=== PATIENT | female | born 1950 | race Caucasian/White ===

== ENCOUNTER 2021-02-09 06:25 | Inpatient (IN) | payer OTHER ==
[~2021-02-09] VITALS: Ht 167.6 cm; Wt 99.3 kg
[2021-02-09 06:25] VITALS: BP 150/77
--- NOTE | 2021-02-09 06:25 | NUR ---
PT CHIN BLS. TAKEN TO BED 5
--- NOTE | 2021-02-09 06:43 | NUR ---
Dr. Buitrago examining patient.
[2021-02-09] MEDS ORDERED: NACL 0.9% 500 ML IV SCH (06:50)
[2021-02-09] MEDS ORDERED: ALBUTEROL HFA MDI 90 MCG/ACTUATION 8 GM INH ONE (06:50)
[2021-02-09] MEDS ORDERED: methylPREDNISolone SS 125 MG/2 ML VIAL IVP ONE (06:50)
--- NOTE | 2021-02-09 07:11 | NUR ---
PATIENT JUST CAME DUE TO FALL AT HOME COMPLAINING OF BACK PAIN AFTER THE FALL HX ASTHMA HTN THREE STENT DIABETE TAKING INSULINE N 53 UNIT AT MORNING 10 UNIT AT NIGHT EDEMA BILATERAL BOTH LEGS ST 116 ON MONITOR REST OF THE VITALS IN NORMAL LIMITS SPO2 97 RA //DiCaprio RN
[2021-02-09 07:13] LABS: HEMATOCRIT 34.3 % (36-48); HEMOGLOBIN 11.4 g/dL (12.0-16.0); MEAN CORPUSCULAR HEMOGLOBIN 30 pg (27-31); MEAN CORPUSCULAR HGB CONC 33 g/dL (33-37); MEAN CORPUSCULAR VOLUME 90.8 fL (80-94); PLATELET COUNT (AUTO) 288 K/uL (140-450); RED BLOOD CELL COUNT(AUTO) 3.77 MIL/uL (4.20-5.40); RED CELL DISTRIBUTION WIDTH 14.6 % (11.6-13.7); WHITE BLOOD COUNT (AUTO) 24.1 K/uL (4.8-10.8)
--- NOTE | 2021-02-09 07:20 | NUR ---
RECEIVED REPORT FROM SOUMYA CORNELL, ASSUMED CARE AT THIS TIME.
[2021-02-09 07:27] LABS: SODIUM SERUM 138 mmol/L (136-145)
[2021-02-09 07:28] LABS: ANION GAP 16.3 (8-16); CARBON DIOXIDE 25.5 mmol/L (21-32); CHLORIDE 100 mmol/L (98-107); CREATININE 1.1 mg/dL (0.6-1.3); GLUCOSE 273 mg/dL (74-106); POTASSIUM 3.8 mmol/L (3.5-5.1); UREA NITROGEN, BLOOD 17 mg/dL (7-18)
[2021-02-09 07:32] LABS: ALBUMIN 2.5 g/dL (3.4-5.0); ASPARTATE AMINOTRANSFERASE 35 U/L (15-37); LYMPHOCYTES % (MANUAL) 5 % (20-46); MONOCYTES % (MANUAL) 5 % (5-12); TOTAL BILIRUBIN 0.9 mg/dL (0.0-1.0)
[2021-02-09] MEDS ORDERED: PIPERACILLIN/TAZOBACTAM 3.375 GM in DEXTROSE 5% 50 ML IV ONE (07:35)
[2021-02-09] MEDS ORDERED: ASPIRIN 81 MG TAB.CHEW PO ONE (07:35)
--- NOTE | 2021-02-09 07:37 | NUR ---
MOVED TO ER BED 3
--- NOTE | 2021-02-09 07:39 | NUR ---
RECEIVED REPORT FROM KRAIG REEVES. TRANSFER OF CARE AT THIS TIME.
--- NOTE | 2021-02-09 07:44 | NUR ---
COLLECTED MO RODRIGUEZ, WALKED TO LAB.
--- NOTE | 2021-02-09 07:52 | NUR ---
PT SPO2 87% ON RA PER MD ORDER PT PLACED ON 2L NC, SPO2 96%. WILL CONTINUE TO MONITOR.
[2021-02-09] MEDS ORDERED: OSELTAMIVIR PHOSPHATE 75 MG CAP PO ONE (07:55)
[2021-02-09] MEDS ORDERED: PIPERACILLIN/TAZOBACTAM 3.375 GM VIAL IV ONE (08:07)
--- NOTE | 2021-02-09 08:12 | NUR ---
COLLECTED RSV AND INFL A&B, EVAN LAMA AT PT BEDSIDE.
--- NOTE | 2021-02-09 08:24 | NUR ---
ASSISTED PT INTO BEDPAN, REPOSITIONED IN BED CHANGED PT BEDSHEETS PROVIDED WARM BLANKET.
--- NOTE | 2021-02-09 08:52 | NUR ---
PT RESTING IN BED HOB ELEVATED FOR COMFORT, VSS, WILL CONTINUE TO MONITOR.
--- NOTE | 2021-02-09 08:59 | NUR ---
GAVE REPORT TO KRAIG CALI FOR PENDING TRANSFER. ETA 10MINUTES.
--- NOTE | 2021-02-09 09:00 | NUR ---
RECEIVED PATIENT REPORT FROM ER NURSE. AWAITING FOR PATIENT TO ARRIVE.
[2021-02-09] MEDS ORDERED: hePARIN / DEXT 5% PREMIX 250 ML IV SCH (09:10)
[2021-02-09] MEDS ORDERED: MAG SULF 2000 MG/WATER PREMIX 50 ML IV PRN (09:10)
[2021-02-09] MEDS ORDERED: HEPARIN PER PHARMACY MC PRN (09:10)
[2021-02-09] MEDS ORDERED: DOCUSATE SODIUM 100 MG GELCAP PO PRN (09:10)
[2021-02-09] MEDS ORDERED: ONDANSETRON 4 MG/2 ML VIAL IM/IVP PRN (09:10)
[2021-02-09 09:11] LABS: RSV NEGATIVE (NEGATIVE)
[2021-02-09 09:15] VITALS: BP 120/67
[2021-02-09] MEDS ORDERED: DEXTROSE 50% 50 ML SYR IVP PRN (09:15)
--- NOTE | 2021-02-09 09:15 | NUR ---
RECEIVED PATIENT FROM ER NURSE VIA TAL. PT IS AOX4, ABLE TO MAKE NEEDS KNOWN. RESPIRATIONS EVEN AND UNLABORED. ON 2L NC WITH NO RESP DISTRESS. SKIN IS WARM, DRY, AND INTACT. HAS BRUISE ON RIGHT ELBOW, BUT INTACT. IV SITE ON RAC 20G INTACT AND PATENT, SALINE LOCKED. ABD SOFT, FLAT, AND NON-DISTENDED, BOWEL SOUNDS ACTIVE IN ALL QUADRANTS. DENIES PAIN AT THE MOMENT. PLAN OF CARE DISCUSSED. SAFETY PRECAUTIONS IN PLACE. CALL LIGHT WITHIN REACH. WILL CONTINUE TO MONITOR.
[2021-02-09] MEDS ORDERED: METF-1022 PO (09:17)
[2021-02-09] MEDS ORDERED: MONT10TA35 PO (09:17)
[2021-02-09] MEDS ORDERED: LOSA100T1 PO (09:17)
[2021-02-09] MEDS ORDERED: FURO-570 PO (09:17)
--- NOTE | 2021-02-09 09:18 | NUR ---
Patient will be admitted to care of DR. CHAVEZ. Admited to TELE. Will go to room 126A. Belongings list completed. Report to KRAIG PAYNE.
[2021-02-09 09:42] LABS: PROTHROMBIN TIME 10.5 secs (10.8-13.4)
[2021-02-09 09:45] LABS: CHOL/HDL RATIO 3.2 (1-4.5)
[2021-02-09] MEDS: NACL 0.9% 1,000 ML IV SCH (09:45)
[2021-02-09 09:46] LABS: THYROID STIMULATING HORMONE 0.3 uIU/mL (0.34-3.74)
[2021-02-09 10:56] LABS: BILIRUBIN,URINE NEGATIVE (NEGATIVE); COLOR,URINE YELLOW (YELLOW); LEUKOCYTE ESTERASE ,URINE NEGATIVE (NEGATIVE); NITRITE, URINE NEGATIVE (NEGATIVE); UGLUCOSE 3+ (NEGATIVE)
[2021-02-09] MEDS: hePARIN / DEXT 5% PREMIX 250 ML IV SCH ×3 (10:56→19:22)
[2021-02-09 11:13] LABS: BLOOD, URINE 1+ (NEGATIVE)
[2021-02-09 11:14] LABS: YEAST,URINE Few /HPF (None Seen)
[2021-02-09 11:15] LABS: APPEARANCE,URINE SLIGHTLY HAZY (CLEAR); RBC,URINE 0-5 /HPF (0-5); WBC,URINE 0-5 /HPF (0-5)
[2021-02-09 11:21] LABS: BARBITURATE, URINE NEGATIVE ng/ml (NEG <=200); BENZODIAZEPINE, URINE NEGATIVE ng/mL (NEG <=200); CANNABINOID, URINE NEGATIVE ng/mL (NEG <=50); COCAINE, URINE NEGATIVE ng/mL (NEG <=300); OPIATE, URINE NEGATIVE ng/mL (NEG <=2000); PHENCYCLIDINE SCREEN,URINE NEGATIVE ng/mL (NEG <=25)
[2021-02-09] MEDS: ALBUTEROL SULFATE/IPRATROPIU 3 ML SOL IH SCH ×2 (11:37→19:09)
[2021-02-09 12:00] VITALS: BP 149/74
[2021-02-09] MEDS: BLOOD GLUCOSE MONITORING 1 DEV DEV FS SCH ×3 (12:01→22:17)
[2021-02-09] MEDS: INSULIN LISPRO SLIDING SCALE 100 UNITS/ML VIAL SUBQ PRN ×3 (12:01→21:55)
--- NOTE | 2021-02-09 12:30 | NUR ---
US TECH AT PATIENTS BEDSIDE.
[2021-02-09] MEDS: PIPERACILLIN/TAZOBACTAM 3.375 GM in DEXTROSE 5% 50 ML IV SCH ×2 (13:23→22:20)
[2021-02-09] MEDS: methylPREDNISolone SS 125 MG/2 ML VIAL IVP SCH ×2 (13:23→22:16)
--- NOTE | 2021-02-09 13:29 | NUR ---
ALL SCHEDULED MEDS GIVEN. PT IS STABLE. NO DISTRESS NOTED. WILL CONTINUE TO MONITOR.
--- NOTE | 2021-02-09 14:10 | NUR ---
PATIENT TRANSFERRED TO RADIOLOGY TO COMPLETE CT ANGIO SCAN.
--- NOTE | 2021-02-09 14:12 | NUR ---
DC PLANNING: LETICIA SPOKE WITH LETICIA TORRE AT [facility] REGARDING AUTHORIZATION FOR INPATIENT STATUS. NICHO STATES SHE WILL NOTE THAT LETICIA CALLED AND NOTIFIED [facility] THAT PATIENT WAS ADMITTED AN INPATIENT SECONDARY TO SEPSIS AND HYPOXEMIA. LETICIA WILL FOLLOW FOR NEEDS. Addendum: 02/09/21 at 1607 by Nithya Gleason CM DC PLANNING: THE PATIENT ADMITTED THROUGH THE ED WITH C/O BODY ACHES S/P FALL, SOB AND COUGHING. WBC'S ON ADMISSION WERE 24.1, PO2 PER ABG'S 58. LETICIA SPOKE WITH THE PATIENT AT BEDSIDE. SHE LIVES ALONE IN A THIRD FLOOR APARTMENT WITH STAIR ACCESS. THE PATIENT HAS NO H/O HOME HEALTH, AND HAS DME OF A CONCENTRATOR, FWW, NEBULIZER AND GLUCOMETER. SHE IS WAITING TO STEAM CLEANER A 14 DAY SENSOR GLUCOSE MONITORING SYSTEM. SHE SEES HER PCP DR FORD EVERY [address] MON[address] AND WAS SEEING DR NEHA SORTO FOR PULMONOLOGY. DR SORTO'S OFFICE STATED ON HER LAST VISIT THAT HE WOULD NO LONGER BE AVAILABLE, PATIENT IS NOT SURE WHAT HER OPTIONS ARE FOR PULMONOLOGY F/U. THE PATIENT ALSO DOES NOT HAVE A PORTABLE O2 SET UP, SHE STATES THAT DR SORTO ORDERED A COMPACT PORTABLE BUT THE DELIVERING COMPANY STATED THEY DIDN'T HAVE ONE. THE PATIENT IS INDEPENDENT WITH BATHING AND DRESSING AND IS ABLE TO WALK SHORT DISTANCES BEFORE SHE BECOMES SOB. SHE DRIVES TO DO [employer] AND GO TO THE DOCTORS OFFICE. SHE HAS A SISTER WHO LIVES IN [place] AND A SON WHO LIVES IN [place], SHE IS IN REGULAR TOUCH WITH BOTH. THE PATIENT STATES THAT SHE DOESN'T USE HER FWW BECAUSE SHE HAS FALLEN WHILE USING IT AND IS NOW AFRAID TO USE IT. LETICIA ENDORSED THAT P.T. CAN SHOW HER HOW TO USE THE FWW, SHE WOULD ALSO LIKE A SEAT ADDED TO IT. LETICIA ENDORSED THAT THIS IS USUALLY AN OUT OF POCKET EXPENSE, BUT CM WILL ASK HER INSURANCE ABOUT COVERAGE FOR THIS WELL THE PORTABLE O2 AND PULMONOLOGY F/U. LETICIA THEN SPOKE WITH BEA AT [facility] AND ENDORSED THE ABOVE ISSUES FOR F/U WITH THE CASEMANAGER NICHO. LETICIA WILL CONTINUE TO FOLLOW FOR NEEDS. Addendum: 02/10/21 at 1225 by Nithya Gleason CM DC PLANNING: LETICIA SPOKE WITH Jeromy LAWSON, SNF RECOMMENDED PATIENT IS VERY WEAK. LETICIA CONFIRMED WITH THE ATTENDING MD THAT HE'S IN AGREEMENT WITH THIS PLAN, THEN SPOKE WITH LETICIA TORRE AT [facility] TO CONFIRM CONTRACTED SNF'S TO REFER THE PATIENT TO. LETICIA SENT REFERRALS TO [facility], [facility], [facility], [facility], [facility], [facility] AND [facility]. LETICIA WILL FOLLOW UP FOR ACCEPTANCE, PATIENT IS NOT EXPECTED TO DC TODAY. IF PATIENT DC'S THIS WEEKEND, [facility] SHOULD BE CALLED FOR AUTHORIZATION FOR TRANSPORT USING [facility] ([phone]), 29/10 NUMBER FOR [facility] IS [phone]. LETICIA WILL FOLLOW FOR NEEDS. Addendum: 02/10/21 at 1624 by Nithya Gleason CM DC PLANNING: PATIENT IS ACCEPTED TO [facility] FOR CONTINUED P.T. NO ROOM ASSIGNMENT YET, [facility] WILL NEED TO BE CONTACTED WHEN THE PATIENT IS READY TO DC. [facility] IS AWARE AND WILL ISSUE AUTH ONCE [facility] CALLS THEM. CM WILL FOLLOW FOR NEEDS. Addendum: 02/14/21 at 0955 by Nithya Gleason CM DC PLANNING: CM SPOKE WITH NICHO AT [facility] ([phone]), CLINICAL UPDATE GIVEN. ENDORSED THAT THE PATIENT'S WBC'S HAVE TRENDED UP AT 20 AND IS ON O2 4L. THE PATIENT REMAINS ELIZABETH WEAK WHEN WORKING WITH P.T., DC PLAN IS FOR HER TO GO TO [facility] WHEN SHE'S STABLE. CM WILL FOLLOW FOR NEEDS. Addendum: 02/16/21 at 0849 by Nithya Gleason CM DC PLANNING: LETICIA SPOKE WITH NICHO HARO [facility], CLINICAL REVIEW GIVEN. PATIENT ON SOLUMEDROL, BREATHING TREATMENTS AND O2, POSSIBLE DC TODAY TO [facility]. CM WILL FOLLOW FOR NEEDS.
[2021-02-09 16:00] VITALS: BP 125/60
[2021-02-09] MEDS ORDERED: GABAPENTIN 100 MG CAP PO SCH (17:00)
--- NOTE | 2021-02-09 17:00 | NUR ---
ALL SCHEDULED MEDS GIVEN. PT IS STABLE. NO DISTRESS NOTED. WILL CONTINUE TO MONITOR
--- NOTE | 2021-02-09 19:13 | NUR ---
ENDORSED TO WORM FARM LABORER NURSE FOR CONTINUITY OF CARE. PT IS STABLE.
--- NOTE | 2021-02-09 19:30 | NUR ---
RECEIVED REPORT FROM RN DAYSHIFT NURSE AT BEDSIDE FOR CONTINUITY OF CARE, PT IN STABLE CONDITION.
[2021-02-09 20:00] VITALS: BP 128/60
--- NOTE | 2021-02-09 20:00 | NUR ---
PT LYING IN BED SHE IS AOX4 WITH 2 LITERS VIA N/C. SHE HAS A RAC 20G RUNNING HEPARIN GTT AT 1000 UNITS.V/S FOLLOWS: T 97.6 P 94 R 18 B/P 128/60 02 94% WITH 2 LITERS VIA N/C. ALL FALLS PRECAUTIONS IN PLACE.
--- NOTE | 2021-02-09 21:00 | NUR ---
PT FINGERSTICK IS 360, SHE WAS GIVEN 10 UNITS HUMALOG COVERAGE. NEW IV SITE 24G ON RIGHT HAND OBTAINED. ORDERED SOLUMEDROL GIVEN IVP. ZOSYN ALSO HUNG AND RUNNING AT 100MLS/HR VIA 24 GUAGE ON RIGHT HAND. PT ALSO TURNED CHANGED AND REPOSITIONED IN BED. ALL ORDERED PRECAUTIONS IN PLACE.
--- NOTE | 2021-02-09 22:00 | NUR ---
PT HAD ANOTHER EPISODE OF INCONTINENCE, SHE WAS TURNED, CHANGED AND REPOSITIONED IN BED. PT COMPLAINED THAT HER FEET WERE HURTING FORM DIABETIC NERVE PAIN AND THAT AT HOME SHE WAS TAKING GABAPENTIN 600MG 4 X A DAY. PT WAS ALSO NOTED WITH DRY INTERMITTENT COUGH. CONTACTED MD DALEY ORDERED NOTED FOR GABAPENTIN 300MG BID WELL PRN ROBITUSSIN.
--- NOTE | 2021-02-09 23:00 | NUR ---
PT REQUESTED PRN TYRELLIEN, BUT WHEN MEDICATION WAS DRAWN UP AND TAKEN TO PT ROOM, PT WAS ALREADY ASLEEP.
[2021-02-10] VITALS: BP 112/62
--- NOTE | 2021-02-10 | NUR ---
PT IN BED RESTING WITH EYES CLOSED NO S/S OF PAIN OR DISTRESS NOTED V/S FOLLOWS; T 97.9 P 83 R 18 B/P 112/62 02 94% ON 2 LITERS VIA N/C. ALL ORDERED PRECAUTIONS IN PLACE.
[2021-02-10] MEDS: NACL 0.9% 1,000 ML IV SCH ×2 (01:50→21:53)
--- NOTE | 2021-02-10 01:57 | NUR ---
LAB DRAW AT BEDSIDE FOR INR/PTT. PTT RESULT 59.4 WHICH IS THERAPEUTIC LEVEL NO CHANGE TO HEPARIN GTT, NEXT LAB DRAW IS 0730.
[2021-02-10] MEDS: ALBUTEROL SULFATE/IPRATROPIU 3 ML SOL IH PRN (03:23)
[2021-02-10 04:00] VITALS: BP 120/58
[2021-02-10] MEDS: PIPERACILLIN/TAZOBACTAM 3.375 GM in DEXTROSE 5% 50 ML IV SCH ×3 (05:00→20:49)
[2021-02-10] MEDS: methylPREDNISolone SS 125 MG/2 ML VIAL IVP SCH (05:00)
[2021-02-10] MEDS ORDERED: methylPREDNISolone SS 125 MG/2 ML VIAL ONE (06:41)
[2021-02-10] MEDS: guaiFENesin DM 200/20 MG-10 ML 10 ML UDC PO PRN ×2 (06:45→20:45)
--- NOTE | 2021-02-10 06:45 | NUR ---
PT GIVEN ROBITUSSIN FOR COUGH. PT IV SITE ON RIGHT OUT, NEW IV SITE STARTED ON LEFT HAND, IVP SOLUMEDROL GIVEN WELL IVPB ABT ZOSYN HUNG AND RUNNING ORDERED. FINGERSTICK IS 296, WILL ENDORSE TO AM SHIFT TO GIVEN HUMALOG COVERAGE.
--- NOTE | 2021-02-10 07:30 | NUR ---
RECEIVED PATIENT FROM DIRECTOR MARKETING COMMUNICATIONS NURSE FOR CONTINUITY OF CARE. PT IS AOX4, ABLE TO MAKE NEEDS KNOWN. RESPIRATIONS EVEN AND UNLABORED. ON 2L NC WITH NO RESP DISTRESS. SKIN IS WARM, DRY, AND INTACT. HAS MULITPLE BRUISES ON RIGHT ARM, BUT INTACT. IV SITE ON RAC 20G AND LH 24G INTACT AND PATENT, INFUSING FLUIDS WELL. ON HEP DRIP. DENIES PAIN AT THE MOMENT. PLAN OF CARE DISCUSSED. SAFETY PRECAUTIONS IN PLACE. CALL LIGHT WITHIN REACH. WILL CONTINUE TO MONITOR.
[2021-02-10] MEDS: INSULIN LISPRO SLIDING SCALE 100 UNITS/ML VIAL SUBQ PRN ×5 (07:36→20:54)
[2021-02-10] MEDS: BLOOD GLUCOSE MONITORING 1 DEV DEV FS SCH ×4 (07:38→20:58)
[2021-02-10] MEDS: ALBUTEROL SULFATE/IPRATROPIU 3 ML SOL IH SCH ×3 (07:53→19:05)
[2021-02-10 08:00] VITALS: BP 134/60
--- NOTE | 2021-02-10 08:51 | NUR ---
PATIENT HAS BEEN SCREENED AND CATEGORIZED MODERATE NUTRITION RISK. PATIENT WILL BE SEEN WITHIN 3-5 DAYS OF ADMISSION. 02/11/21 02/13/[address]
[2021-02-10 09:01] LABS: BASOPHILS % (AUTO) 0.2 % (0.0-2.0); HEMATOCRIT 33.2 % (36-48); HEMOGLOBIN 10.7 g/dL (12.0-16.0); LYMPHOCYTES % (AUTO) 3.9 % (20.5-51.1); MEAN CORPUSCULAR HEMOGLOBIN 30 pg (27-31); MEAN CORPUSCULAR HGB CONC 32 g/dL (33-37); MEAN CORPUSCULAR VOLUME 91.5 fL (80-94); MONOCYTES # (AUTO) 0.6 K/uL (0.8-1.0); MONOCYTES % (AUTO) 2.5 % (1.7-9.3); NEUTROPHILS # (AUTO) 23.4 K/uL (1.8-7.7); NEUTROPHILS % (AUTO) 93.4 % (42.2-75.2); PLATELET COUNT (AUTO) 325 K/uL (140-450); RED BLOOD CELL COUNT(AUTO) 3.63 MIL/uL (4.20-5.40); RED CELL DISTRIBUTION WIDTH 14.8 % (11.6-13.7)
[2021-02-10 09:11] LABS: ANION GAP 16.7 (8-16); CARBON DIOXIDE 22.1 mmol/L (21-32); CHLORIDE 104 mmol/L (98-107); GLUCOSE 305 mg/dL (74-106); POTASSIUM 3.8 mmol/L (3.5-5.1); SODIUM SERUM 139 mmol/L (136-145); UREA NITROGEN, BLOOD 23 mg/dL (7-18)
[2021-02-10 09:16] LABS: MAGNESIUM 2.2 mg/dL (1.8-2.4); PHOSPHORUS 3.1 mg/dL (2.5-4.9)
[2021-02-10] MEDS: LOSARTAN 50 MG TAB PO SCH (09:40)
[2021-02-10] MEDS: MONTELUKAST SODIUM 10 MG TAB PO SCH (09:41)
[2021-02-10] MEDS: GABAPENTIN 300 MG CAP PO SCH ×2 (09:41→20:45)
[2021-02-10] MEDS: FUROSEMIDE 40 MG TAB PO SCH (09:41)
[2021-02-10] MEDS: KETOROLAC 15 MG/ML VIAL IVP PRN (09:42)
--- NOTE | 2021-02-10 09:45 | NUR ---
ALL SCHEDULED MEDS GIVEN. PT IS STABLE. NO DISTRESS NOTED. WILL CONTINUE TO MONITOR
[2021-02-10] MEDS: PANTOPRAZOLE 40 MG INJ VIAL IVP SCH (09:50)
[2021-02-10 12:00] VITALS: BP 124/78
[2021-02-10 12:07] LABS: T4 (THYROXINE) 7.5 ug/dL (4.5-12.0)
--- NOTE | 2021-02-10 12:46 | NUR ---
BLOOD SUGAR CHECK WAS 467. ADMINISTERED 12 UNITS OF INSULIN SQ PER MD ORDERED.
[2021-02-10] MEDS: methylPREDNISolone SS 40 MG/ML VIAL IVP SCH ×2 (12:57→20:45)
[2021-02-10] MEDS: hePARIN / DEXT 5% PREMIX 250 ML IV SCH (13:31)
--- NOTE | 2021-02-10 14:43 | NUR ---
RECHECKED PATIENT'S BS. BS WAS 436. NOTIFIED MD AND RECEIVED NEW ORDERS. WILL REASSESS BS IN 30 MINS
[2021-02-10] MEDS ORDERED: INSULIN REGULAR, HUMAN 100 UNIT/ML VIAL IVP SCH (15:45)
[2021-02-10 16:00] VITALS: BP 105/65
--- NOTE | 2021-02-10 16:00 | NUR ---
EMPLOYMENT MANAGER AT PATIENT'S BEDSIDE
--- NOTE | 2021-02-10 16:11 | NUR ---
ADMINISTERED 6 UNITS OF HUMULIN R IVP DUE TO PATIENT BS OF 409
--- NOTE | 2021-02-10 18:02 | NUR ---
BLOOD SUGAR CHECK WAS 338. ADMINISTERED 8 UNITS OF INSULIN SQ PER MD ORDERED.
--- NOTE | 2021-02-10 19:35 | NUR ---
ENDORSED TO COMPLEX CARE NURSE NURSE FOR CONTINUITY OF CARE. PT IS STABLE.
--- NOTE | 2021-02-10 19:36 | NUR ---
RECEIVED PT ON BED, AAOX4, ABLE TO MAKE NEEDS KNOWN, ON O2 AT 2L VIA NC, OCCASIONAL COUGH NOTED, WILL GIVE PRN COUGH MEDICATION, IVF INFUSING WELL, ON BEDREST DUE TO GENERALIZED WEAKNESS, SAFETY MEASURES IN PLACE, CALL LIGHT WITHIN REACH.
[2021-02-10 20:00] VITALS: BP 111/51
[2021-02-10] MEDS ORDERED: INSULIN LANTUS 100 UNITS/ML 10 ML VIAL SUBQ SCH (21:00)
--- NOTE | 2021-02-10 21:00 | NUR ---
PT INCONTINENT OF URINE, PERINEAL CARE DONE BY NITA BRADLEY, BLOOD SUGAR CHECKED WITH 360 RESULT, COVERAGE GIVEN, DUE MEDS ADMINISTERED, ALL NEEDS ATTENDED.
[2021-02-11] VITALS: BP_SYST 111; BP_SYST 122; BP_DIAS 51; BP_DIAS 64
--- NOTE | 2021-02-11 | NUR ---
PT SLEEPING, EASILY AROUSABLE, VITAL SIGNS STABLE, NO SIGNS OF PAIN OR SOB NOTED, HEPARIN DRIP INFUSING WELL TO 1000 UNITS/H, CONTINUE TO MONITOR CLOSELY.
[2021-02-11] MEDS: ALBUTEROL SULFATE/IPRATROPIU 3 ML SOL IH PRN (01:52)
[2021-02-11] MEDS: ZOLPIDEM 5 MG TAB PO PRN ×2 (02:06→21:49)
--- NOTE | 2021-02-11 02:06 | NUR ---
PT COMPLAINING OF SOB, HOB ELEVATED, RT DARNELL GAVE BREATHING TREATMENT WITH GOOD RESULT, PT REQUESTED SLEEPING PILL, AMBIEN PO GIVEN ORDERED, MONITORED CLOSELY.
[2021-02-11 04:00] VITALS: BP 142/60
[2021-02-11] MEDS: methylPREDNISolone SS 40 MG/ML VIAL IVP SCH (04:40)
[2021-02-11] MEDS: PIPERACILLIN/TAZOBACTAM 3.375 GM in DEXTROSE 5% 50 ML IV SCH ×3 (04:40→21:45)
[2021-02-11] MEDS: INSULIN LISPRO SLIDING SCALE 100 UNITS/ML VIAL SUBQ PRN ×3 (06:49→22:49)
[2021-02-11] MEDS: BLOOD GLUCOSE MONITORING 1 DEV DEV FS SCH ×4 (06:55→21:00)
--- NOTE | 2021-02-11 07:00 | NUR ---
AM LABS DRAWN, BLOOD SUGAR CHECKED WITH 396 RESULT, COVERAGE GIVEN, HEPARIN DRIP INFUSING WELL, PT REQUESTING FOR HER BREATHING TX, RT MADE AWARE, HOB ELEVATED AT THIS TIME, MONITORED CLOSELY.
[2021-02-11 07:02] LABS: BASOPHILS # (AUTO) 0.2 K/uL (0.00-0.22); BASOPHILS % (AUTO) 1.2 % (0.0-2.0); HEMATOCRIT 32.2 % (36-48); HEMOGLOBIN 10.6 g/dL (12.0-16.0); LYMPHOCYTES # (AUTO) 0.5 K/uL (2.5-16.5); LYMPHOCYTES % (AUTO) 2.9 % (20.5-51.1); MEAN CORPUSCULAR HEMOGLOBIN 30 pg (27-31); MEAN CORPUSCULAR HGB CONC 33 g/dL (33-37); MEAN CORPUSCULAR VOLUME 91.5 fL (80-94); MONOCYTES # (AUTO) 0.4 K/uL (0.8-1.0); MONOCYTES % (AUTO) 2.3 % (1.7-9.3); NEUTROPHILS # (AUTO) 17.5 K/uL (1.8-7.7); NEUTROPHILS % (AUTO) 93.6 % (42.2-75.2); PLATELET COUNT (AUTO) 293 K/uL (140-450); RED BLOOD CELL COUNT(AUTO) 3.52 MIL/uL (4.20-5.40); RED CELL DISTRIBUTION WIDTH 15.2 % (11.6-13.7); WHITE BLOOD COUNT (AUTO) 18.7 K/uL (4.8-10.8)
[2021-02-11] MEDS: ALBUTEROL SULFATE/IPRATROPIU 3 ML SOL IH SCH ×3 (07:21→19:12)
--- NOTE | 2021-02-11 07:35 | NUR ---
PT AWAKE, NO SIGNS OF DISTRESS, BEDSIDE REPORT GIVEN TO KERRY CORNELL FOR CONTINUITY OF CARE.
--- NOTE | 2021-02-11 07:35 | NUR ---
RECEIVED PATIENT FROM CERTIFIED ALCOHOL COUNSELOR NURSE FOR CONTINUITY OF CARE. PT IS AOX4, ABLE TO MAKE NEEDS KNOWN. RESPIRATIONS EVEN AND UNLABORED. ON 2L NC WITH NO RESP DISTRESS. SKIN IS WARM, DRY, AND INTACT. HAS MULTIPLE BRUISES ON RIGHT ARM, BUT INTACT. IV SITE ON RAC 20G AND LH 24G INTACT AND PATENT, INFUSING FLUIDS WELL. ON HEP DRIP. DENIES PAIN AT THE MOMENT. PLAN OF CARE DISCUSSED. SAFETY PRECAUTIONS IN PLACE. CALL LIGHT WITHIN REACH. WILL CONTINUE TO MONITOR.
[2021-02-11 08:00] VITALS: BP 139/54
[2021-02-11 08:07] LABS: MAGNESIUM 2.4 mg/dL (1.8-2.4); PHOSPHORUS 3.1 mg/dL (2.5-4.9)
[2021-02-11 08:15] LABS: ANION GAP 15.6 (8-16); CARBON DIOXIDE 22.4 mmol/L (21-32); CHLORIDE 105 mmol/L (98-107); CREATININE 1.1 mg/dL (0.6-1.3); GLUCOSE 430 mg/dL (74-106); SODIUM SERUM 139 mmol/L (136-145); UREA NITROGEN, BLOOD 35 mg/dL (7-18)
[2021-02-11] MEDS: guaiFENesin DM 200/20 MG-10 ML 10 ML UDC PO PRN ×2 (08:39→21:50)
[2021-02-11] MEDS: GABAPENTIN 300 MG CAP PO SCH ×2 (08:40→21:47)
[2021-02-11] MEDS: MONTELUKAST SODIUM 10 MG TAB PO SCH (08:40)
[2021-02-11] MEDS: FUROSEMIDE 40 MG TAB PO SCH (08:40)
[2021-02-11] MEDS: LOSARTAN 50 MG TAB PO SCH (08:41)
[2021-02-11] MEDS: PANTOPRAZOLE 40 MG INJ VIAL IVP SCH (08:41)
[2021-02-11] MEDS ORDERED: INSULIN LANTUS 100 UNITS/ML 10 ML VIAL SUBQ SCH (09:00)
--- NOTE | 2021-02-11 09:00 | NUR ---
ALL SCHEDULED MEDS GIVEN. PT IS STABLE. NO DISTRESS NOTED. WILL CONTINUE TO MONITOR.
[2021-02-11] MEDS: hePARIN / DEXT 5% PREMIX 250 ML IV SCH (09:45)
[2021-02-11 12:00] VITALS: BP 136/60
--- NOTE | 2021-02-11 12:30 | NUR ---
BS CHECK WAS 414. NOTIFIED MD AND RECEIVED NEW ORDERS TO ADMINISTER 8 UNITS OF HUMULIN R IVP.
--- NOTE | 2021-02-11 13:04 | NUR ---
ENDORSED TO KRAIG GERMAIN FOR CONTINUITY OF CARE. PT IS STABLE
--- NOTE | 2021-02-11 13:05 | NUR ---
RECEIVED REPORT FROM KERRY CORNELL
[2021-02-11] MEDS: INSULIN REGULAR, HUMAN 100 UNIT/ML VIAL IVP SCH (14:23)
--- NOTE | 2021-02-11 15:43 | NUR ---
ROBITUSSIN GIVEN ORDERED
[2021-02-11 16:00] VITALS: BP 129/50
--- NOTE | 2021-02-11 16:30 | NUR ---
BLOOD SUGAR 411. 10u HUMALOG GIVEN. NOTIFIED DR PUTNAM, NO NEW ORDERS
[2021-02-11 20:00] VITALS: BP 130/55
--- NOTE | 2021-02-11 20:12 | NUR ---
Assumed care. A/O x 4. Able o verbalize needs. She did call and requested for her PM medications. She also wants her sleep medication. That shall be provided. She c/o her bottom being red, and that it is hurting her. We shall be applying a diaper by request from pt. We shall clean her up. Applied a barrier cream to the bottom. We have also encouraged her to turn at least every 2 hours in order to promote blood saturation. Also to mitigate the pain issue. We shall give her some pain medication as well. Will continue to monitor.
[2021-02-11] MEDS: guaiFENesin 600 MG TABER PO SCH (21:46)
[2021-02-11] MEDS: METOPROLOL 25 MG TAB PO SCH (21:46)
[2021-02-11] MEDS: NACL 0.9% 1,000 ML IV SCH (21:48)
[2021-02-11] MEDS: KETOROLAC 15 MG/ML VIAL IVP PRN (21:49)
[2021-02-11] MEDS: INSULIN LANTUS 100 UNITS/ML 10 ML VIAL SUBQ SCH (22:50)
[2021-02-12] VITALS: BP 128/54
[2021-02-12] MEDS: ALBUTEROL SULFATE/IPRATROPIU 3 ML SOL IH SCH ×4 (00:28→19:16)
--- NOTE | 2021-02-12 01:53 | NUR ---
IV line is still problematic, but we shall get it to work. Did complain of difficulty breathing. RT was notified. Pt did receive a breath treatment, and she is able to sleep now. Will continue to monitor.
[2021-02-12] MEDS: guaiFENesin DM 200/20 MG-10 ML 10 ML UDC PO PRN ×2 (03:06→11:23)
[2021-02-12 04:00] VITALS: BP 126/58
[2021-02-12] MEDS: ALBUTEROL SULFATE/IPRATROPIU 3 ML SOL IH PRN ×2 (04:14→08:11)
[2021-02-12] MEDS: PIPERACILLIN/TAZOBACTAM 3.375 GM in DEXTROSE 5% 50 ML IV SCH ×3 (05:54→20:59)
[2021-02-12] MEDS: KETOROLAC 15 MG/ML VIAL IVP PRN ×2 (06:11→11:23)
[2021-02-12 06:26] LABS: BASOPHILS # (AUTO) 0.1 K/uL (0.00-0.22); BASOPHILS % (AUTO) 0.5 % (0.0-2.0); HEMATOCRIT 31.2 % (36-48); HEMOGLOBIN 10.4 g/dL (12.0-16.0); LYMPHOCYTES # (AUTO) 1.9 K/uL (2.5-16.5); MEAN CORPUSCULAR HEMOGLOBIN 30 pg (27-31); MEAN CORPUSCULAR HGB CONC 33 g/dL (33-37); MEAN CORPUSCULAR VOLUME 91.6 fL (80-94); MONOCYTES # (AUTO) 0.8 K/uL (0.8-1.0); MONOCYTES % (AUTO) 4.6 % (1.7-9.3); NEUTROPHILS # (AUTO) 13.5 K/uL (1.8-7.7); PLATELET COUNT (AUTO) 303 K/uL (140-450); RED BLOOD CELL COUNT(AUTO) 3.41 MIL/uL (4.20-5.40); RED CELL DISTRIBUTION WIDTH 15.1 % (11.6-13.7); WHITE BLOOD COUNT (AUTO) 16.3 K/uL (4.8-10.8)
[2021-02-12 06:55] LABS: ANION GAP 10.6 (8-16); CARBON DIOXIDE 27.6 mmol/L (21-32); CHLORIDE 105 mmol/L (98-107); CREATININE 1.1 mg/dL (0.6-1.3); GLUCOSE 258 mg/dL (74-106); POTASSIUM 3.2 mmol/L (3.5-5.1); SODIUM SERUM 140 mmol/L (136-145); UREA NITROGEN, BLOOD 30 mg/dL (7-18)
[2021-02-12 07:02] LABS: MAGNESIUM 2.2 mg/dL (1.8-2.4)
[2021-02-12 07:12] LABS: LYMPHOCYTES % (AUTO) 11.9 % (20.5-51.1)
--- NOTE | 2021-02-12 07:15 | NUR ---
Received report from pm nurse Eduardo. Patient resting in bed, respirations even & nonlabored on humidified O2 @ 3L/min via n/c. Intermittent productive cough present with creamy yellow sputum. Left forearm 20G IV intact and asymptomatic with ongoing NS @ 40ml/hr. Call light within reach.
[2021-02-12 08:00] VITALS: BP 140/63
[2021-02-12] MEDS: MONTELUKAST SODIUM 10 MG TAB PO SCH (08:18)
[2021-02-12] MEDS: PANTOPRAZOLE 40 MG INJ VIAL IVP SCH (08:18)
[2021-02-12] MEDS: FUROSEMIDE 40 MG TAB PO SCH (08:19)
[2021-02-12] MEDS: GABAPENTIN 300 MG CAP PO SCH ×2 (08:19→21:01)
[2021-02-12] MEDS: ATORVASTATIN 20 MG TAB PO SCH (08:19)
[2021-02-12] MEDS: ECOTRIN 81 MG TABEC PO SCH (08:19)
[2021-02-12] MEDS: guaiFENesin 600 MG TABER PO SCH ×2 (08:20→21:00)
[2021-02-12] MEDS: LOSARTAN 50 MG TAB PO SCH (08:20)
[2021-02-12] MEDS: METOPROLOL 25 MG TAB PO SCH ×2 (08:20→21:00)
[2021-02-12] MEDS: BLOOD GLUCOSE MONITORING 1 DEV DEV FS SCH ×4 (08:30→20:58)
[2021-02-12] MEDS: INSULIN LANTUS 100 UNITS/ML 10 ML VIAL SUBQ SCH ×2 (08:42→21:00)
[2021-02-12] MEDS: BENZONATATE 100 MG CAPLF PO PRN ×2 (09:30→14:43)
--- NOTE | 2021-02-12 11:30 | NUR ---
Patient sitting up at edge of bed, no signs of distress, respirations even & nonlabored on O2 @ 4L/min via n/c. Call light within reach.
[2021-02-12] MEDS: INSULIN LISPRO SLIDING SCALE 100 UNITS/ML VIAL SUBQ PRN ×2 (11:35→16:56)
--- NOTE | 2021-02-12 11:40 | NUR ---
Patient noted with perineal redness. Dr Jennings notified with order for Gregory. Order noted and carried out.
[2021-02-12 12:00] VITALS: BP 137/58
[2021-02-12] MEDS ORDERED: INSULIN REGULAR, HUMAN 100 UNIT/ML VIAL IVP SCH (12:35)
[2021-02-12] MEDS: INSULIN REGULAR, HUMAN 100 UNIT/ML VIAL IVP SCH (14:30)
[2021-02-12] MEDS: POTASSIUM CHLORIDE 10 MEQ TABER PO PRN (14:43)
[2021-02-12] MEDS: LORazepam 2 MG/ML VIAL IM/IVP PRN (14:50)
--- NOTE | 2021-02-12 14:50 | NUR ---
Pt verbalized feeling general anxiety and she couldn't rest. Lorazepam administered. Reassurance provided.
--- NOTE | 2021-02-12 15:30 | NUR ---
Patient asleep, respirations even & nonlabored on O2 @ 4L/min via n/c. Call light within reach.
[2021-02-12 16:00] VITALS: BP 125/61
[2021-02-12] MEDS: ACETAMINOPHEN 325 MG TAB PO PRN (16:54)
[2021-02-12 20:00] VITALS: BP 136/63
--- NOTE | 2021-02-12 20:20 | NUR ---
Assumed care. Has been cleaned up for incontinence. She wants some medication to calm her down. Will go through her medication. Current blood glucose = 135. Will contact
--- NOTE | 2021-02-12 20:31 | NUR ---
BG = 135 Dr. Jennings contacted in regard to the administration of Lantus 25 units tonight. Per MD hold the dose for tonight. Will administer the PM medications now.
[2021-02-12] MEDS ORDERED: Z-GUARD PASTE TP SCH (21:00)
[2021-02-12] MEDS: NACL 0.9% 1,000 ML IV SCH (22:45)
[2021-02-13] VITALS: BP 145/65
[2021-02-13] MEDS: ALBUTEROL SULFATE/IPRATROPIU 3 ML SOL IH SCH ×4 (00:31→19:07)
[2021-02-13] MEDS: LORazepam 2 MG/ML VIAL IM/IVP PRN (01:41)
[2021-02-13] MEDS: KETOROLAC 15 MG/ML VIAL IVP PRN ×2 (01:42→20:37)
[2021-02-13] MEDS: ZOLPIDEM 5 MG TAB PO PRN ×2 (01:42→20:38)
[2021-02-13] MEDS: BENZONATATE 100 MG CAPLF PO PRN (01:46)
[2021-02-13 04:00] VITALS: BP 150/70
[2021-02-13] MEDS: PIPERACILLIN/TAZOBACTAM 3.375 GM in DEXTROSE 5% 50 ML IV SCH ×3 (05:09→20:39)
[2021-02-13 06:11] LABS: ANION GAP 6.7 (8-16); CHLORIDE 106 mmol/L (98-107); CREATININE 0.9 mg/dL (0.6-1.3); GLUCOSE 231 mg/dL (74-106); POTASSIUM 3.7 mmol/L (3.5-5.1); SODIUM SERUM 139 mmol/L (136-145); UREA NITROGEN, BLOOD 22 mg/dL (7-18)
[2021-02-13 06:12] LABS: MAGNESIUM 2.1 mg/dL (1.8-2.4); PHOSPHORUS 3.1 mg/dL (2.5-4.9)
[2021-02-13 06:17] LABS: BASOPHILS # (AUTO) 0.1 K/uL (0.00-0.22); BASOPHILS % (AUTO) 0.3 % (0.0-2.0); EOSINOPHILS # (AUTO) 0.2 K/uL (0-0.4); EOSINOPHILS % (AUTO) 0.9 % (0.0-4.0); HEMATOCRIT 31.8 % (36-48); HEMOGLOBIN 10.5 g/dL (12.0-16.0); LYMPHOCYTES # (AUTO) 2.1 K/uL (2.5-16.5); LYMPHOCYTES % (AUTO) 11.3 % (20.5-51.1); MEAN CORPUSCULAR HEMOGLOBIN 30 pg (27-31); MEAN CORPUSCULAR HGB CONC 33 g/dL (33-37); MEAN CORPUSCULAR VOLUME 91.7 fL (80-94); MONOCYTES # (AUTO) 0.7 K/uL (0.8-1.0); MONOCYTES % (AUTO) 4.1 % (1.7-9.3); NEUTROPHILS # (AUTO) 15.2 K/uL (1.8-7.7); NEUTROPHILS % (AUTO) 83.4 % (42.2-75.2); PLATELET COUNT (AUTO) 273 K/uL (140-450); RED BLOOD CELL COUNT(AUTO) 3.46 MIL/uL (4.20-5.40); RED CELL DISTRIBUTION WIDTH 15.2 % (11.6-13.7); WHITE BLOOD COUNT (AUTO) 18.2 K/uL (4.8-10.8)
[2021-02-13] MEDS: BLOOD GLUCOSE MONITORING 1 DEV DEV FS SCH ×4 (06:39→20:49)
[2021-02-13] MEDS: INSULIN LISPRO SLIDING SCALE 100 UNITS/ML VIAL SUBQ PRN ×4 (06:50→21:49)
--- NOTE | 2021-02-13 07:55 | NUR ---
RECEIVED PATIENT REPORT FROM SHAKER WASHER NURSE FOR CONTINUITY OF CARE. PT IS AOX1, NO RESPIRATORY DISTRESS. SKIN IS INTACT. IV IN PLACE PATENT ASYMPTOMATIC , BREATHING EVEN UNLABORED, . DENIES PAIN AT THE MOMENT. PLAN OF CARE DISCUSSED. PATIENT IS CONFUSED, TRYING TO GET OUT OF BED, EXPLAIN TO THE PATIENT THE RISK OF FALL AND EDUCATED ODIN CALL IF SHE NEED ANYTHING, CALLS LIGHT WITHIN REACH, ALL NEED MEET AT THIS MOMENT ALL SAFETY PRECAUTIONS IN PLACE CALL LIGHT WITHIN REACH.
[2021-02-13 08:00] VITALS: BP 125/68
[2021-02-13] MEDS: ATORVASTATIN 20 MG TAB PO SCH (08:10)
[2021-02-13] MEDS: ECOTRIN 81 MG TABEC PO SCH (08:11)
[2021-02-13] MEDS: METOPROLOL 25 MG TAB PO SCH ×2 (08:11→20:34)
[2021-02-13] MEDS: guaiFENesin 600 MG TABER PO SCH ×2 (08:11→20:35)
[2021-02-13] MEDS: FUROSEMIDE 40 MG TAB PO SCH (08:11)
[2021-02-13] MEDS: LOSARTAN 50 MG TAB PO SCH (08:12)
[2021-02-13] MEDS: GABAPENTIN 300 MG CAP PO SCH ×2 (08:12→20:35)
[2021-02-13] MEDS: PANTOPRAZOLE 40 MG INJ VIAL IVP SCH (08:12)
[2021-02-13] MEDS: MONTELUKAST SODIUM 10 MG TAB PO SCH (08:12)
[2021-02-13] MEDS: INSULIN LANTUS 100 UNITS/ML 10 ML VIAL SUBQ SCH ×2 (08:25→21:00)
--- NOTE | 2021-02-13 09:42 | NUR ---
PATIENT ON BED, COMPLAINS OF BEING TIRED, NEXT TO BED TALKING TO THE PATIENT, RESIDENT OF DR BERNAL ASKED TO GIVE ANOTHER BREATHING TREATMENT, CALLED RT AND MADE AWARE, NO SOD NOTED, MORNING MEDICATION ADMINISTRATED TOLERATED WELL, PATIENT ATE BREAKFAST, ABLE TO FEED HER SELF WITH MINIMAL ASSISTANCE ALL SAFETY MEASURES ON PLACE CALLS LIGHT WITHIN REACH
--- NOTE | 2021-02-13 10:00 | NUR ---
CALLED TO PTS ROOM FOR BREATHING TX. AFTER BREATHING TX AND WHEEZING SUBSIDED, PT STATED SHE WAS STILL SOB AND WAS LABORED AND PURSED LIP BREATHING. PT IN OBVIOUS RESPIRATORY DISTRESS, PLACED ON HFNC 35L 40%, SPO2 94-96%. PT STATED SHE FELT A LITTLE BETTER. RN NOTIFIED.
[2021-02-13] MEDS: ALBUTEROL SULFATE/IPRATROPIU 3 ML SOL IH PRN (10:15)
--- NOTE | 2021-02-13 11:45 | NUR ---
02/13/21 RD INITIAL ASSESSMENT COMPLETED PLEASE REFER TO NUTRITION ASSESSMENT UNDER CARE ACTIVITY FOR ESTIMATED NUTRITIONAL NEEDS. 1.CONTINUE [facility] DIET TOLERATED 2.RECOMMEND GLUCERNA BID, CONSUME IN BETWEEN MEALS -THIS WILL PROVIDE 440 KCALS AND 20GM PROTEIN. 3.RD TO FOLLOW-UP 3-5 DAYS, MODERATE RISK REVIEWED BY MAGO KING RD
--- NOTE | 2021-02-13 11:46 | NUR ---
PATIENT IN BED GOT CLEANED AND CHANGED, NO SOD NOTED, ALL SAFETY MEASURES ON PLACE CALLS LIGHT WITHIN REACH
[2021-02-13 12:00] VITALS: BP 132/78
--- NOTE | 2021-02-13 13:31 | NUR ---
PATIENT IN BED GOT CLEANED AND CHANGED, NO SOD NOTED, PT IN NASAL CANULA `4 L, BUSINESS CONTROLLER PUT THE PATIENT ON HIGH FLOW, PATEIENT KEEP REMOVING IT, PATIENT WAS PLACED BACK ON NASAL CANULA SAT 94% ALL SAFETY MEASURES ON PLACE CALLS LIGHT WITHIN REACH
--- NOTE | 2021-02-13 13:33 | NUR ---
PT AGREED TO GO BACK ON HFNC 25L 35%/, WILL SEE HOW PT TOLERATES. NASAL CANNULA AT BEDSIDE IF PT REMOVES HFNC AGAIN.
[2021-02-13] MEDS: INSULIN REGULAR, HUMAN 100 UNIT/ML VIAL IVP SCH (14:20)
--- NOTE | 2021-02-13 15:40 | NUR ---
HUMULIN INSULIN R WAS NOT ADMINISTRATED, THE ORDER IS WRONG AND CLARIFIED WITH DR BERNAL HE ASKED TO DC THE ORDER AND DO RISS WITH ACUCHECK Addendum: 02/13/21 at 1543 by Rosalio Corado RN RN PT IN BED CONFUSED NO SOD NOTD, TRIED TO GET OUT OF THE BED MULTIPKE TIME, EXPLAINED TO THE PATIENT THE RISK OF FALL AND ENCOURAGE HER TO CALL THE LIGHT CALL FOR ANY NEED OR HELP,K ALL SAFETY MEASURES ON PLACE CALLS LIGHT WITHIN REACH
[2021-02-13 16:00] VITALS: BP 157/75
--- NOTE | 2021-02-13 18:20 | NUR ---
PATIENT IN BED NO COMPLAINS, NO SOD NOTED, ALL SAFETY MEASURES ON PLACE CALLS LIGHT WITHIN REACH
--- NOTE | 2021-02-13 19:22 | NUR ---
1906 PATIENT SEEMS SOB. HHNTX GIVEN. PATIENT IS ON 5LNC. TRIED TO PERSUADE PATIENT TO GO ON HIGH FLOW.. PT REFUSES.. PATIENT HAS DECREASED BS.
--- NOTE | 2021-02-13 19:49 | NUR ---
FULL REPORT GIVEN TO AIR TRAFFIC CONTROL MANAGER NURSE
--- NOTE | 2021-02-13 19:50 | NUR ---
RECEIVED REPORT FROM BETH RN FOR CONTINUITY OF CARE. PT SITTING UP AAOX3. NO APPARENT S/S OF ACUTE DISTRESS. BREATHING EVEN AND UNLABORED ON 5L HI-FLOW NC WITH O2 SAT OF 94. NO C/O CP, SOB OR PAIN. L FA 22G INTACT/PATENT WITH NS@40ML/HR. POC AND WHITE COMMUNICATION BOARD UPDATED. BED IN LOW/LOCKED POSITION. CALL LIGHT WITHIN REACH. PT ENCOURAGED TO CALL FOR ANY NEEDS/ASSISTANCE. WILL CONTINUE TO MONITOR.
[2021-02-13 20:00] VITALS: BP 143/56
--- NOTE | 2021-02-13 20:43 | NUR ---
ACCUCHECK COMPLETED, BS 150 NO INSULIN DUE PER SLIDING SCALE. SCHEDULED LANTUS 25 UNITS DUE. WILL NOTIFY MD FOR FURTHER ORDERS.
[2021-02-13] MEDS: NACL 0.9% 1,000 ML IV SCH (21:18)
--- NOTE | 2021-02-13 21:39 | NUR ---
SPOKE TO DR. DAVIS. ORDERS TO HOLD SCHEDULED LANTUS 25 UNITS. RECEIVED ORDER TO GIVE 6 UNITS PER INSULIN SLIDING SCALE NOW.
[2021-02-14] VITALS: BP 121/53
[2021-02-14] MEDS: ALBUTEROL SULFATE/IPRATROPIU 3 ML SOL IH SCH ×4 (00:51→19:15)
[2021-02-14 04:00] VITALS: BP 139/59
[2021-02-14 05:41] LABS: BASOPHILS # (AUTO) 0.1 K/uL (0.00-0.22); BASOPHILS % (AUTO) 0.3 % (0.0-2.0); EOSINOPHILS # (AUTO) 0.2 K/uL (0-0.4); HEMATOCRIT 32.8 % (36-48); HEMOGLOBIN 10.7 g/dL (12.0-16.0); LYMPHOCYTES # (AUTO) 1.7 K/uL (2.5-16.5); LYMPHOCYTES % (AUTO) 8.5 % (20.5-51.1); MEAN CORPUSCULAR HEMOGLOBIN 30 pg (27-31); MEAN CORPUSCULAR HGB CONC 33 g/dL (33-37); MEAN CORPUSCULAR VOLUME 92.1 fL (80-94); MONOCYTES # (AUTO) 0.7 K/uL (0.8-1.0); MONOCYTES % (AUTO) 3.5 % (1.7-9.3); NEUTROPHILS # (AUTO) 17.4 K/uL (1.8-7.7); NEUTROPHILS % (AUTO) 86.7 % (42.2-75.2); PLATELET COUNT (AUTO) 265 K/uL (140-450); RED BLOOD CELL COUNT(AUTO) 3.56 MIL/uL (4.20-5.40); RED CELL DISTRIBUTION WIDTH 15.2 % (11.6-13.7)
[2021-02-14 05:42] LABS: MAGNESIUM 2.1 mg/dL (1.8-2.4); PHOSPHORUS 3.4 mg/dL (2.5-4.9)
[2021-02-14 05:59] LABS: ANION GAP 7.1 (8-16); CARBON DIOXIDE 31.3 mmol/L (21-32); CHLORIDE 105 mmol/L (98-107); CREATININE 1.1 mg/dL (0.6-1.3); GLUCOSE 139 mg/dL (74-106); POTASSIUM 3.4 mmol/L (3.5-5.1); SODIUM SERUM 140 mmol/L (136-145); UREA NITROGEN, BLOOD 21 mg/dL (7-18)
[2021-02-14] MEDS: BLOOD GLUCOSE MONITORING 1 DEV DEV FS SCH ×4 (06:31→20:50)
[2021-02-14] MEDS: POTASSIUM CHLORIDE 10 MEQ TABER PO PRN (06:40)
[2021-02-14] MEDS: guaiFENesin DM 200/20 MG-10 ML 10 ML UDC PO PRN ×2 (06:43→21:46)
--- NOTE | 2021-02-14 07:24 | NUR ---
REPORT GIVEN TO LEONARDA CORNELL FOR CONTINUITY OF CARE. NO APPARENT S/S OF ACUTE DISTRESS. BED IN LOW/LOCKED POSITION. CALL LIGHT WITHIN REACH. ALL NEEDS MET AT THIS TIME. Addendum: 02/14/21 at 0712 by Agency NurseKRAIG RN REPORT GIVEN TO TRISTEN GAMBOA RN FOR CONTINUITY OF CARE.
[2021-02-14 08:00] VITALS: BP 128/67
[2021-02-14] MEDS: ACETAMINOPHEN 325 MG TAB PO PRN (08:30)
[2021-02-14] MEDS: ECOTRIN 81 MG TABEC PO SCH (09:55)
[2021-02-14] MEDS: GABAPENTIN 300 MG CAP PO SCH ×2 (09:55→20:52)
[2021-02-14] MEDS: ATORVASTATIN 20 MG TAB PO SCH (09:55)
[2021-02-14] MEDS: PANTOPRAZOLE 40 MG INJ VIAL IVP SCH (10:01)
[2021-02-14] MEDS: guaiFENesin 600 MG TABER PO SCH ×2 (10:02→20:51)
[2021-02-14] MEDS: MONTELUKAST SODIUM 10 MG TAB PO SCH (10:02)
[2021-02-14] MEDS: FUROSEMIDE 40 MG TAB PO SCH (10:03)
[2021-02-14] MEDS: LOSARTAN 50 MG TAB PO SCH (10:03)
[2021-02-14] MEDS: methylPREDNISolone SS 40 MG/ML VIAL IVP SCH (10:04)
[2021-02-14] MEDS: BENZONATATE 100 MG CAPLF PO PRN (10:11)
[2021-02-14] MEDS: METOPROLOL 25 MG TAB PO SCH ×2 (10:11→20:51)
[2021-02-14] MEDS: INSULIN LANTUS 100 UNITS/ML 10 ML VIAL SUBQ SCH ×2 (10:17→21:05)
[2021-02-14 12:00] VITALS: BP 124/62
[2021-02-14] MEDS: INSULIN LISPRO SLIDING SCALE 100 UNITS/ML VIAL SUBQ PRN ×3 (12:31→21:04)
[2021-02-14 16:00] VITALS: BP 123/57
--- NOTE | 2021-02-14 19:15 | NUR ---
RECEIVED REPORT FROM COOPER CORNELL FOR CONTINUITY OF CARE. PT SITTING UP AAOX3. NO APPARENT S/S OF ACUTE DISTRESS. BREATHING EVEN AND UNLABORED ON 5L NC WITH O2 SAT OF 97%. NO C/O CP, SOB OR PAIN. L FA 22G INTACT/PATENT. POC AND WHITE COMMUNICATION BOARD UPDATED. BED IN LOW/LOCKED POSITION. CALL LIGHT WITHIN REACH. PT ENCOURAGED TO CALL FOR ANY NEEDS/ASSISTANCE. WILL CONTINUE TO MONITOR.
[2021-02-14 20:00] VITALS: BP 109/46
[2021-02-14] MEDS: ZOLPIDEM 5 MG TAB PO PRN (20:52)
[2021-02-14] MEDS: NACL 0.9% 1,000 ML IV SCH (21:18)
[2021-02-15] VITALS: BP 118/55
[2021-02-15] MEDS: ALBUTEROL SULFATE/IPRATROPIU 3 ML SOL IH SCH ×4 (00:29→19:16)
[2021-02-15] MEDS: BENZONATATE 100 MG CAPLF PO PRN (01:04)
[2021-02-15] MEDS: ACETAMINOPHEN 325 MG TAB PO PRN (01:09)
[2021-02-15 04:00] VITALS: BP 133/62
[2021-02-15] MEDS: guaiFENesin DM 200/20 MG-10 ML 10 ML UDC PO PRN (05:16)
[2021-02-15] MEDS: ALBUTEROL SULFATE/IPRATROPIU 3 ML SOL IH PRN ×2 (05:28→16:10)
--- NOTE | 2021-02-15 06:26 | NUR ---
0626: POC GLUCOSE 263. INSULIN GIVEN PER EMAR.
[2021-02-15] MEDS: BLOOD GLUCOSE MONITORING 1 DEV DEV FS SCH ×4 (06:31→20:22)
[2021-02-15] MEDS: INSULIN LISPRO SLIDING SCALE 100 UNITS/ML VIAL SUBQ PRN ×4 (06:35→20:25)
--- NOTE | 2021-02-15 06:58 | NUR ---
REPORT GIVEN TO SANDRA CORNELL FOR CONTINUITY OF CARE. NO APPARENT S/S OF ACUTE DISTRESS. BED IN LOW/LOCKED POSITION. CALL LIGHT WITHIN REACH. ALL NEEDS MET AT THIS TIME.
--- NOTE | 2021-02-15 07:26 | NUR ---
REPORT RECEIVED FORM PICTURE COPYIST NURSE AT BEDSIDE. PT RESTING I, BREATHING IS SYMMETRICAL AND UNLABORED . PT IS ABLE TO MAKE NEEDS KNOWN CALL LIGHT WITHIN REACH. ALL SAFETY MEASURES ARE IN PLACE.
[2021-02-15 08:00] VITALS: BP 142/64
[2021-02-15] MEDS: methylPREDNISolone SS 40 MG/ML VIAL IVP SCH (08:50)
[2021-02-15] MEDS: PANTOPRAZOLE 40 MG INJ VIAL IVP SCH (08:52)
[2021-02-15] MEDS: LOSARTAN 50 MG TAB PO SCH (08:53)
[2021-02-15] MEDS: ATORVASTATIN 20 MG TAB PO SCH (08:53)
[2021-02-15] MEDS: guaiFENesin 600 MG TABER PO SCH ×2 (08:56→20:21)
[2021-02-15] MEDS: GABAPENTIN 300 MG CAP PO SCH ×2 (08:56→20:20)
[2021-02-15] MEDS: MONTELUKAST SODIUM 10 MG TAB PO SCH (08:56)
[2021-02-15] MEDS: FUROSEMIDE 40 MG TAB PO SCH (08:56)
[2021-02-15] MEDS: METOPROLOL 25 MG TAB PO SCH ×2 (08:57→20:21)
[2021-02-15] MEDS: INSULIN LANTUS 100 UNITS/ML 10 ML VIAL SUBQ SCH ×2 (08:57→20:26)
[2021-02-15] MEDS: ECOTRIN 81 MG TABEC PO SCH (08:57)
--- NOTE | 2021-02-15 09:17 | NUR ---
PATIENT GIVEN PRESCRIBED MEDIATIONS GIVEN PER MD ORDER. PT EDUCATED AND VERBALIZED UNDERSTANDING BG 136. PT ATE 70% OF BREAKFAST PATIENT EDUCATED ON HYPOGLYCEMIC S/SX , AND SNACK PROVIDED
--- NOTE | 2021-02-15 09:33 | NUR ---
AT BEDSIDE , PT REQUEST WATER PT GIVEN WATER WITH ICE PER REQUEST , ALL SAFETY MEASURES IN PLACE. PT REQUEST BAO MANRIQUE AWARE.
--- NOTE | 2021-02-15 10:22 | NUR ---
PT COMPLAINS OF LEFT LEG NUMBNESS , PT IS ABLE TO MOVE LEG, HAS SENSATION AND IS ABLE TO VERBALIZE WHERE I TOUCH . NO LOSS OF COLOR Addendum: 02/15/21 at 1024 by Yojana Reed RN RN PT EDUCATED TO EXERCISE BOTH LEGS, PT GUIDED THROUGH EXERCISES , PT REPOSITIONED AND OFFERED PILLOW TO PLACE UNDER LEG . ALL SAFETY MEASURES IN PLACE.
--- NOTE | 2021-02-15 11:10 | NUR ---
PT COMPLAINS OF LEFT LEG NUMBNESS AGAIN POT ASSESSED. PT ABLE TO MOVE LEG, ABLE TO FEEL SENSATION , PT REPOSITIONED ON OPPOSITE SIDE . ALL SAFETY MEASURES ARE IN PLACE.
--- NOTE | 2021-02-15 11:22 | NUR ---
PT COMPLAINS OF PAINFUL IV SITE. IV REMOVED CANULA INTACT. NEW LINE STARTED 22G RIGHT AC. PT TOLERATED WELL, ALL SAFETY MEASURES ARE IN PLACE.
--- NOTE | 2021-02-15 11:30 | NUR ---
BG 326. ALL SAFETY MEASURES IN PLACE.
--- NOTE | 2021-02-15 11:35 | NUR ---
PRN INSULIN GIVEN PER MD ORDER, DUAL RN VERIFICATION COMPLETED . PT EDUCATED AND VERBALIZED UNSERSTANDING . PT STATES SHE PREFERS HER TRULICITY ALL SAFETY MEASURES IN PLACE.
--- NOTE | 2021-02-15 11:58 | NUR ---
PT COMPLAINS OF CHAPPED LIPS. LIP MOISTURIZER PROVIDED
[2021-02-15 12:00] VITALS: BP 125/53
[2021-02-15] MEDS: LORazepam 2 MG/ML VIAL IM/IVP PRN ×2 (13:05→20:10)
--- NOTE | 2021-02-15 13:10 | NUR ---
PT COMPLAINS OF FEELING ANXIOUS PRN MEDICATION GIVEN PER MD ORDER. PT EDUCATED AND VERBALIZED UNDERSTANDING
--- NOTE | 2021-02-15 13:32 | NUR ---
PT CHANGED AND REPOSITIONED . ALL SAFETY MEASURES ARE IN PLACE.
--- NOTE | 2021-02-15 15:25 | NUR ---
PT CHANGED REPOSITIONED ALL SAFETY MEASURE ARE IN PLACE
--- NOTE | 2021-02-15 17:29 | NUR ---
PT REQUEST ATIVAN PT EDUCATED . PT IS CALM AND RELAXED AT THIS TIME. PT GUIDED THROUGH BREATHING EXERCISES
--- NOTE | 2021-02-15 17:56 | NUR ---
CALLED PICC LINE NURSE TO FOLLOW UP FOR AN eta, NO ANSWER LEFT MESSAGE.
[2021-02-15 18:02] VITALS: BP 124/70
--- NOTE | 2021-02-15 18:29 | NUR ---
PATIENT CALLED . PT REPOSITIONED AND CHANGED ALL SAFETY MEASURE SIN PLACE. Addendum: 02/15/21 at 1840 by Yojana Reed RN RN WRONG PT
--- NOTE | 2021-02-15 19:30 | NUR ---
Received patient from am shift nurse. Patient is A&OX3 able to make needs known, no s/s of distress noted, denies any chest pain or SOB. Patient had RT at bed side. Chest rise is even and unlabored with diminished lung sounds bilaterally on 5L NC. Normal heart sounds present S1& S2 with Tachy cardic rhythm. Bowel sounds are active x4 and no ABD tenderness on palpation. Patient is stable will continue to monitor throughout the shift.
--- NOTE | 2021-02-15 19:30 | NUR ---
PT WAS SEEN AND ASSESSED. PT ON 3L NASAL CANNULA. SPO2 94%. PT IS IN NO RESPIRATORY DISTRESS AT THIS TIME. HHN TX GIVEN ORDERED AND PT TOLERATED WELL. WILL CONTINUE TO MONITOR PT.
--- NOTE | 2021-02-15 19:32 | NUR ---
PT ENDORSED TO BEHAVIORAL HEALTH THERAPIST NURSE. PT INSTABLE CONDITION
[2021-02-15] MEDS: NACL 0.9% 1,000 ML IV SCH (20:28)
[2021-02-15] MEDS: ZOLPIDEM 5 MG TAB PO PRN (22:48)
[2021-02-16] VITALS: BP 103/65
--- NOTE | 2021-02-16 | NUR ---
Patient is sleeping no s/s of distress is noted. Call light is within reach, bed is in the lowest position with bed rails up. Will continue to monitor throughout the shift.
[2021-02-16] MEDS: ALBUTEROL SULFATE/IPRATROPIU 3 ML SOL IH SCH ×3 (01:34→13:38)
[2021-02-16] MEDS: ACETAMINOPHEN 325 MG TAB PO PRN (02:35)
[2021-02-16] MEDS: LORazepam 2 MG/ML VIAL IM/IVP PRN (02:35)
--- NOTE | 2021-02-16 02:40 | NUR ---
Patient is anxious and reports headache. Stating she is unable to rest. Ativan administered as ordered and acetaminophen was given for headache. Will continue to monitor.
[2021-02-16] MEDS: INSULIN LISPRO SLIDING SCALE 100 UNITS/ML VIAL SUBQ PRN ×2 (06:41→11:30)
[2021-02-16] MEDS: BLOOD GLUCOSE MONITORING 1 DEV DEV FS SCH ×2 (06:45→11:27)
[2021-02-16 06:49] VITALS: BP 111/56
--- NOTE | 2021-02-16 07:05 | NUR ---
RECEIVED PATIENT FROM [employer] NURSE FOR CONTINUITY OF CARE. PATIENT IS AWAKE, ALERT AND ORIENTED X3. ON TELE MONITOR. RESTING IN BED, NO SIGN OF RESPIRATORY DISTRESS, ON 5L OXYGEN VIA NC. SKIN WARM, DRY, NON DIAPHORETIC. IV ON RIGHT AC 22G, INTACT AND PATENT, SALINE LOCK. PATIENT DENIES ANY PAIN, ABLE TO MAKE NEED KNOWN. PLAN OF CARE DISCUSSED, PATIENT VERBALIZED UNDERSTANDING. PRECAUTION IN PLACE. CALL LIGHT WITHIN REACH. WILL CONTINUE TO MONITOR.
[2021-02-16 08:00] VITALS: BP 145/74
[2021-02-16] MEDS: PANTOPRAZOLE 40 MG INJ VIAL IVP SCH (09:25)
[2021-02-16] MEDS: methylPREDNISolone SS 40 MG/ML VIAL IVP SCH (09:25)
[2021-02-16] MEDS: ATORVASTATIN 20 MG TAB PO SCH (09:26)
[2021-02-16] MEDS: MONTELUKAST SODIUM 10 MG TAB PO SCH (09:32)
[2021-02-16] MEDS: FUROSEMIDE 40 MG TAB PO SCH (09:33)
[2021-02-16] MEDS: guaiFENesin 600 MG TABER PO SCH (09:33)
[2021-02-16] MEDS: METOPROLOL 25 MG TAB PO SCH (09:33)
[2021-02-16] MEDS: GABAPENTIN 300 MG CAP PO SCH (09:34)
[2021-02-16] MEDS: LOSARTAN 50 MG TAB PO SCH (09:34)
[2021-02-16] MEDS: ECOTRIN 81 MG TABEC PO SCH (09:34)
--- NOTE | 2021-02-16 09:34 | NUR ---
SCHEDULE MEDICATIONS GIVEN WITH EDUCATION, PATIENT VERBALIZED UNDERSTANDING. PATIENT TOLERATED WELL. NO SIGN OF DISTRESS NOTED. PRECAUTION IN PLACE. CALL LIGHT WITHIN REACH. WILL CONTINUE TO MONITOR.
[2021-02-16] MEDS: INSULIN LANTUS 100 UNITS/ML 10 ML VIAL SUBQ SCH (09:42)
[2021-02-16] MEDS ORDERED: ASPI-1749 PO (10:22)
[2021-02-16] MEDS ORDERED: ATOR40TA PO (10:22)
[2021-02-16] MEDS ORDERED: GABA300C PO (10:22)
[2021-02-16] MEDS ORDERED: INSU100S22 SUBQ (10:22)
--- NOTE | 2021-02-16 10:40 | NUR ---
PATIENT REQUESTS BREATHING TREATMENT. CALLED RT TO NOTIFY.
[2021-02-16] MEDS: ALBUTEROL SULFATE/IPRATROPIU 3 ML SOL IH PRN (10:46)
[2021-02-16] MEDS: guaiFENesin DM 200/20 MG-10 ML 10 ML UDC PO PRN (11:23)
--- NOTE | 2021-02-16 11:23 | NUR ---
PATIENT COUGH WITH PRODUCTIVE. COUGH MEDICATION PRN GIVEN WITH EDUCATION, PATIENT VERBALIZED UNDERSTANDING. BLOOD SUGAR CHECK 160, 2 UNITS OF INSULIN GIVEN TO COVER, PATIENT TOLERATED WELL. NO SIGN OF DISTRESS NOTED. PRECAUTION IN PLACE. CALL LIGHT WITHIN REACH. WILL CONTINUE TO MONITOR.
[2021-02-16 12:00] VITALS: BP 151/59
--- NOTE | 2021-02-16 13:50 | NUR ---
CALLED [facility] TO GIVE REPORT TO KRAIG GARCIA. ALL QUESTION WAS ANSWER. NURSE AWARE PATIENT IS TRANSFERRING.
--- NOTE | 2021-02-16 14:30 | NUR ---
[facility] ARRIVAL, DISCHARGE EDUCATION GIVEN TO PATIENT, VERBALIZED UNDERSTANDING. DISCHARGE PAPER WORK GIVE TO [facility]. IV REMOVE, BLEEDING CONTROL. ID BAND REMOVE. PATIENT IS STABLE. DENIES ANY SOB, RESPIRATORY EVEN AND UNLABORED, ON 3L OXYGEN VIA NC.
== END 2021-02-16 14:35 | DRG 871 ==
LOC: MED 06:25 → MMU 09:05
PROC: 5A0935A Assistance with Respiratory Ventilation, Less than 24 Consecutive Hours, High Flow/Velocity Cannula (ICD-10-PCS; principal; 2021-02-13)
DX: A41.9 Sepsis, unspecified organism (principal); J96.01 Acute respiratory failure with hypoxia; J18.9 Pneumonia, unspecified organism; E43 Unspecified severe protein-calorie malnutrition; I21.A1 Myocardial infarction type 2; K44.0 Diaphragmatic hernia with obstruction, without gangrene; M84.48XA Pathological fracture, other site, initial encounter for fracture; I50.9 Heart failure, unspecified; I11.0 Hypertensive heart disease with heart failure; E66.9 Obesity, unspecified; D64.9 Anemia, unspecified; K44.9 Diaphragmatic hernia without obstruction or gangrene; Z77.22 Contact with and (suspected) exposure to environmental tobacco smoke (acute) (chronic); E05.80 Other thyrotoxicosis without thyrotoxic crisis or storm; B88.8 Other specified infestations; I25.10 Atherosclerotic heart disease of native coronary artery without angina pectoris; E11.51 Type 2 diabetes mellitus with diabetic peripheral angiopathy without gangrene; E11.65 Type 2 diabetes mellitus with hyperglycemia; J43.2 Centrilobular emphysema; E78.5 Hyperlipidemia, unspecified; Z20.822 Contact with and (suspected) exposure to COVID-19; K21.9 Gastro-esophageal reflux disease without esophagitis; S50.312A Abrasion of left elbow, initial encounter; S50.311A Abrasion of right elbow, initial encounter; W18.39XA Other fall on same level, initial encounter; Y93.89 Activity, other specified; Y92.89 Other specified places as the place of occurrence of the external cause; Y99.8 Other external cause status; Z68.35 Body mass index [BMI] 35.0-35.9, adult; Z90.710 Acquired absence of both cervix and uterus; Z88.1 Allergy status to other antibiotic agents; Z88.5 Allergy status to narcotic agent; Z79.899 Other long term (current) drug therapy; Z95.5 Presence of coronary angioplasty implant and graft
CPT/HCPCS: 36415; 36600; 71045; 71275; 80048; 80053; 80305; 81001; 82150; 82550; 82553; 82803; 82948; 83036; 83605; 83690; 83735; 83880; 84100; 84134; 84436; 84443; 84484; 85025; 85610; 85730; 87040; 87081; 87086; 87420; 87804; 93005; 93925; 93970; 94640; 94664; 96365; 96375; 97110; 97112; 97116; 97163-GP; 97530; 99291; C9113; J1644; J1815; J1885; J2060; J2543; J2920; J2930; J7060; Q0092; Q9967; U0003